=== PATIENT | female | born 1990 | race African-American/Black ===

== ENCOUNTER 2021-10-27 22:01 | Inpatient (IN) ==
[2021-10-27] MEDS ORDERED: TRANEXAMIC ACID 1,000 MG in SODIUM CHLORIDE 0.9% 100 ML IV PRN (23:09)
[2021-10-27] MEDS ORDERED: OXYTOCIN/LR 20 UNIT/1,000 ML BAG IV ONE (23:09)
[2021-10-27] MEDS ORDERED: MEPERIDINE 50 MG/1 ML VIAL IV PRN (23:09)
[2021-10-27] MEDS ORDERED: BUTORPHANOL 2 MG/ML VIAL IV PRN (23:09)
[2021-10-27] MEDS ORDERED: CARBOPROST TROMETHAMINE 250 MCG/ML AMP IM PRN (23:09)
[2021-10-27] MEDS ORDERED: METHYLERGONOVINE 0.2 MG/1 ML AMP IM PRN (23:09)
[2021-10-27] MEDS ORDERED: LACTATED RINGERS 500 ML IV PRN (23:09)
[2021-10-27] MEDS ORDERED: miSOPROStoL 200 MCG TABLET RECTAL PRN (23:09)
[2021-10-27] MEDS ORDERED: LACTATED RINGERS 250 ML IV ONE (23:09)
[2021-10-27] MEDS ORDERED: ONDANSETRON 4 MG/2 ML VIAL IV PRN (23:09)
[2021-10-27 23:29] LABS: Basophils % 0.2 % (0.0-0.8); Eosinophils # 0.1 10*3/uL (0.0-0.87); Eosinophils % 0.9 % (0.00-10.9); Hematocrit 39.6 VOL% (35.7-47.0); Hemoglobin 13.1 GM/DL (12.0-16.0); Immature Granulocytes % 0.6 %; Immature Granulocytes Absolute 0.06 #; Lymphocytes % 31.1 % (21.3-54.2); Mean Corpuscular HGB Conc 33.1 GM/DL (32-36); Mean Corpuscular Volume 86.3 FL (87-102); Mean Platelet Volume 11.7 FL (9.6-12.0); Monocytes # 0.7 10*3/uL (0.11-0.8); Monocytes % 7.5 % (1.7-12.7); Neutrophils % 59.7 % (38.7-73.9); Platelet Count 177 T/CUMM (130-400); Red Blood Count 4.59 MC/CUMM (3.8-5.5); Red Cell Distribution Width 15.9 % (9.3-17.3); White Blood Count 9.7 T/CUMM (4-12)
[2021-10-28] MEDS: LACTATED RINGERS 1,000 ML IV SCH ×3 (00:23→16:20)
[2021-10-28] MEDS ORDERED: OXYTOCIN/LR 20 UNIT/1,000 ML BAG IV SCH (05:00)
[2021-10-28] MEDS ORDERED: ONDANSETRON 4 MG/2 ML VIAL IV ONE (07:14)
[2021-10-28] MEDS ORDERED: FAMOTIDINE 20 MG/2 ML VIAL IV ONE (07:14)
[2021-10-28] MEDS ORDERED: diphenhydrAMINE 50 MG/1 ML VIAL IV PRN ×2 (07:14)
[2021-10-28] MEDS ORDERED: PROMETHAZINE 25 MG/1 ML VIAL IM ONE (07:14)
[2021-10-28] MEDS ORDERED: NALOXONE 0.4 MG/ML VIAL IV PRN (07:14)
[2021-10-28] MEDS ORDERED: ePHEDrine 50 MG/ML VIAL IV PRN (07:14)
[2021-10-28] MEDS ORDERED: hydrOXYzine HCL 25 MG/1 ML VIAL IM PRN (07:14)
[2021-10-28] MEDS ORDERED: CITRIC ACID/SODIUM CITRATE 30 ML UDCUP PO ONE ×2 (07:14→14:23)
[2021-10-28] MEDS ORDERED: fentaNYL 2 MCG/ROPIV 0.2% EPID 100 ML EPIDURAL SCH (07:30)
[2021-10-28] MEDS ORDERED: TERBUTALINE 1 MG/1 ML VIAL ONE (08:26)
[2021-10-28] MEDS ORDERED: TERBUTALINE 1 MG/1 ML VIAL SUBCUT ONE ×2 (08:28→14:21)
[2021-10-28 13:20] LABS: Amorphous Crystals,Urine Few /HPF (Few); Bacteria,Urine Occasional /HPF (Few); Mucus,Urine Occasional /LPF (Occasional); Squamous Epithelial Cell,Urine Occasional /HPF (0-10); Urine Appearance Clear (Clear); Urine Color Yellow (Yellow)
[2021-10-28 13:21] LABS: Bilirubin,Urine Negative (Negative); Blood, Urine Negative (Negative); Glucose,Urine (UA) Negative (Negative); Ketones,Urine Negative (Negative); Nitrite,Urine Negative (Negative); Protein,Urine Negative (Negative); Urine Urobilinogen 0.2 eU/dL (<2.0); Urine pH 5.5 (4.5-8.0)
[2021-10-28] MEDS ORDERED: METHYLERGONOVINE 0.2 MG/1 ML AMP ONE (13:59)
[2021-10-28] MEDS ORDERED: CARBOPROST TROMETHAMINE 250 MCG/ML AMP IM ONE (13:59)
[2021-10-28] MEDS ORDERED: SODIUM CHLORIDE 0.9% 0 ML IV ONE (13:59)
[2021-10-28] MEDS ORDERED: miSOPROStoL 200 MCG TABLET ONE (13:59)
[2021-10-28] MEDS ORDERED: TRANEXAMIC ACID 1,000 MG/10 ML VIAL ONE (13:59)
[2021-10-28] MEDS ORDERED: CARBOPROST TROMETHAMINE 250 MCG/ML AMP IM PRN (14:23)
[2021-10-28] MEDS ORDERED: ceFAZolin 3,000 MG in SYRINGE 1 EACH IV ONE (14:23)
[2021-10-28] MEDS ORDERED: METHYLERGONOVINE 0.2 MG/1 ML AMP IM PRN (14:23)
[2021-10-28] MEDS ORDERED: miSOPROStoL 200 MCG TABLET RECTAL PRN (14:23)
[2021-10-28] MEDS ORDERED: OXYTOCIN/LR 20 UNIT/1,000 ML BAG IV ONE ×2 (14:23→16:25)
[2021-10-28] MEDS ORDERED: TRANEXAMIC ACID 1,000 MG in SODIUM CHLORIDE 0.9% 100 ML IV PRN (14:23)
[2021-10-28] MEDS ORDERED: OXYTOCIN 10 UNIT/ML VIAL IM ONE (14:29)
[2021-10-28] MEDS ORDERED: OXYTOCIN/LR 30 UNIT/1,000 ML BAG IV ONE (14:29)
[2021-10-28] MEDS ORDERED: ONDANSETRON 4 MG/2 ML VIAL ONE (15:16)
[2021-10-28] MEDS ORDERED: LIDOCAINE MPF 2% /EPI 20 ML VIAL ONE (15:16)
[2021-10-28] MEDS ORDERED: ACETAMINOPHEN INJ 1,000 MG/100 ML VIAL IV ONE (15:21)
[2021-10-28] MEDS ORDERED: DEXAMETHASONE 4 MG/1 ML VIAL ONE (15:21)
[2021-10-28] MEDS ORDERED: KETOROLAC 30 MG/1 ML VIAL ONE (15:21)
[2021-10-28] MEDS ORDERED: buprenorphine HCL 0.3 MG/ML VIAL ONE (15:42)
[2021-10-28] MEDS ORDERED: PHENYLEPHRINE 1 MG/10 ML SYRINGE IV ONE (15:53)
[2021-10-28 16:03] LABS: Cord Venous Blood HCO3 19.7 MMOL/L; Cord Venous Blood PCO2 41.6 MMHG; Cord Venous Blood PO2 24.8
[2021-10-28 16:06] LABS: Cord Arterial Blood HCO3 19.3 MMOL/L
[2021-10-28] MEDS ORDERED: ONDANSETRON 4 MG/2 ML VIAL IV PRN (16:25)
[2021-10-28] MEDS ORDERED: SIMETHICONE CHEW 80 MG TABLET PO PRN (16:25)
[2021-10-28] MEDS ORDERED: RHO(D) IMMUNE GLOBULIN 300 MCG SYRINGE IM ONE (16:25)
[2021-10-28] MEDS ORDERED: ACETAMINOPHEN 325 MG TABLET PO PRN (16:25)
[2021-10-28] MEDS ORDERED: LACTATED RINGERS 1,000 ML IV SCH (16:30)
[2021-10-28] MEDS: DOCUSATE SODIUM 100 MG CAPSULE PO SCH (22:07)
[2021-10-28] MEDS: ACETAMINOPHEN 500 MG TABLET PO SCH (22:08)
[2021-10-28] MEDS: KETOROLAC 30 MG/1 ML VIAL IV SCH (22:15)
[2021-10-28] MEDS: ceFAZolin 2,000 MG/50 ML DUPLEX IV SCH (22:59)
[2021-10-28] MEDS ORDERED: ceFAZolin 2,000 MG in SODIUM CHLORIDE 0.9% 100 ML IV SCH (23:00)
[2021-10-29 00:20] LABS: Basophils % 0.2 % (0.0-0.8); Eosinophils % 0.2 % (0.00-10.9); Hematocrit 34.7 VOL% (35.7-47.0); Hemoglobin 11.5 GM/DL (12.0-16.0); Immature Granulocytes % 0.8 %; Immature Granulocytes Absolute 0.15 #; Lymphocytes # 2.4 10*3/uL (1.4-4.0); Lymphocytes % 12.2 % (21.3-54.2); Mean Corpuscular HGB Conc 33.1 GM/DL (32-36); Mean Corpuscular Volume 86.8 FL (87-102); Mean Platelet Volume 11.5 FL (9.6-12.0); Monocytes # 1.4 10*3/uL (0.11-0.8); Monocytes % 7.3 % (1.7-12.7); Neutrophils % 79.3 % (38.7-73.9); Platelet Count 162 T/CUMM (130-400); White Blood Count 19.5 T/CUMM (4-12)
[2021-10-29] MEDS: ACETAMINOPHEN 500 MG TABLET PO SCH ×2 (03:36→10:23)
[2021-10-29] MEDS: KETOROLAC 30 MG/1 ML VIAL IV SCH ×2 (03:44→09:49)
[2021-10-29] MEDS: ceFAZolin 2,000 MG/50 ML DUPLEX IV SCH (07:00)
[2021-10-29 08:06] LABS: Basophils # 0.1 10*3/uL (0.0-0.2); Basophils % 0.2 % (0.0-0.8); Eosinophils # 0.1 10*3/uL (0.0-0.87); Eosinophils % 0.3 % (0.00-10.9); Hematocrit 38.1 VOL% (35.7-47.0); Hemoglobin 12.3 GM/DL (12.0-16.0); Immature Granulocytes % 0.6 %; Immature Granulocytes Absolute 0.13 #; Lymphocytes # 2.6 10*3/uL (1.4-4.0); Lymphocytes % 12.8 % (21.3-54.2); Mean Corpuscular HGB Conc 32.3 GM/DL (32-36); Mean Corpuscular Volume 88.4 FL (87-102); Monocytes # 1.6 10*3/uL (0.11-0.8); Monocytes % 7.6 % (1.7-12.7); Neutrophils % 78.5 % (38.7-73.9); Platelet Count 185 T/CUMM (130-400); Red Blood Count 4.31 MC/CUMM (3.8-5.5); Red Cell Distribution Width 16.4 % (9.3-17.3); White Blood Count 20.4 T/CUMM (4-12)
[2021-10-29 08:24] LABS: Eosinophils 1 % (0-10); Lymphocytes 20 % (20-55); Total Cells Counted 100
[2021-10-29 08:25] LABS: Platelet Estimate Adequate
[2021-10-29] MEDS: DOCUSATE SODIUM 100 MG CAPSULE PO SCH ×2 (09:46→21:08)
[2021-10-29] MEDS: MULTIVITAMIN (PRENATAL) TABLET PO SCH (09:47)
[2021-10-29] MEDS ORDERED: FLUCONAZOLE 150 MG TABLET PO ONE (10:00)
[2021-10-29] MEDS: METOCLOPRAMIDE 10 MG TABLET PO SCH ×2 (10:21→17:46)
[2021-10-29] MEDS: MAGNESIUM HYDROXIDE SUSP 30 ML UDCUP PO PRN ×2 (10:21→21:08)
[2021-10-29] MEDS: IBUPROFEN 800 MG TABLET PO PRN (15:29)
[2021-10-30] MEDS: IBUPROFEN 800 MG TABLET PO PRN ×2 (00:01→08:10)
[2021-10-30] MEDS: METOCLOPRAMIDE 10 MG TABLET PO SCH (02:25)
[2021-10-30] MEDS: MULTIVITAMIN (PRENATAL) TABLET PO SCH (08:45)
[2021-10-30] MEDS: DOCUSATE SODIUM 100 MG CAPSULE PO SCH (08:45)
[2021-10-30 10:39] VITALS: BP 119/71
[2021-10-30] MEDS ORDERED: DIPH/TET/ACEL PERT BOOSTER VACCINE 0.5 ML VIAL IM ONE (10:46)
== END 2021-10-30 12:40 | disposition home or self-care (01) | DRG 540 ==
LOC: N.LDOUT 22:01 → N.LD 22:02 → N.OB 10-28 20:47
PROVIDERS: ADMIT Obstetrics & Gynecology; ATTEND Obstetrics & Gynecology
PROC: LDCSECT (ICD-10-PCS; 2021-10-28 15:20)